=== PATIENT | female | born 1965 | race Caucasian/White ===

== ENCOUNTER 2017-06-27 11:59 | Observation (INO) ==
--- NOTE | 2017-06-27 12:15 | Emergency Department Note ---
Disposition Clinical Impression: Nausea & vomiting Disposition: Admitted As Inpatient Condition: Good Abdominal Pain HPI - General Chief Complaint: ED Abdominal Pain Stated Complaint: Epigastric pain and vomiting Time Seen by Provider: 06/27/17 12:00 Source: patient Mode of arrival: ambulatory Limitations: no limitations Nursing Notes Reviewed: Yes Vital Signs Reviewed: Yes - History of Present Illness HPI Narrative: 62-year-old female patient was seen here on Tuesday for nausea and vomiting and she continues to have it despite the medications so she came back for reevaluation. She explains nothing is new she just continues to have nausea and vomiting. Pt Subjective Complaint: other (n/v) Onset (ago): day(s) (several) Consistency: constant Location: diffuse Pain Severity: severe Pain Scale: 10 Quality: cramping Radiation: none Migration to: no migration Improves with: nothing Worsens with: nothing Associated symptoms: Reports: nausea, vomiting. Denies: fever, chills, constipation, dysuria, hematemesis, hematochezia, melena - Related Data Home Medications Medication Instructions Recorded Confirmed Alendronate Sodium 70 mg PO QWEEK 04/28/17 06/27/17 BuPROPion XL (24 HR) [Wellbutrin 300 mg PO DAILY 04/28/17 06/27/17 XL] Buspirone HCl [Buspar] 10 mg PO BID 04/28/17 06/27/17 Butalb/Acetaminophen/Caffeine 1 each PO Q4H PRN 04/28/17 06/27/17 [Fioricet 50-300-40 mg Capsule] Calcium Carbonate [Calcium] 500 mg PO DAILY 04/28/17 06/27/17 Meloxicam [Mobic] 15 mg PO DAILY 04/28/17 06/27/17 Omeprazole [PriLOSEC] 20 mg PO DAILY 04/28/17 06/27/17 Quetiapine Fumarate [SEROquel] 25 mg PO HS 04/28/17 06/27/17 Simethicone [Gas Relief] 80 mg PO BID PRN 04/28/17 06/27/17 Tizanidine HCl [Zanaflex] 4 mg PO TID PRN 04/28/17 06/27/17 clonazePAM [Clonazepam] 1 mg PO HS 04/28/17 06/27/17 Previous Rx's Medication Instructions Recorded Dicyclomine [Bentyl] 20 mg PO QID PRN #20 capsule 06/24/17 Ondansetron ODT [Zofran ODT] 4 mg SL Q6HR PRN #12 tab.rapdis 06/24/17 Promethazine [Phenergan] 25 mg PO Q8HR PRN #12 tablet 06/24/17 Allergies Allergy/AdvReac Type Severity Reaction Status Date / Time No Known Allergies Allergy Verified 04/29/17 09:01 All systems ED: reviewed and negative except as stated. Constitutional: Denies: fever, chills, weakness, weight change Eyes: Denies: eye pain, eye discharge, vision change ENT ED: Denies: ear pain, throat pain, dental pain, hearing loss, epistaxis, congestion, dysphagia Cardiovascular: Denies: chest pain, palpitations, dyspnea on exertion, edema, syncope Respiratory: Denies: cough, dyspnea, wheezes, hemoptysis, stridor Gastrointestinal: Reports: as per HPI, nausea, vomiting Genitourinary: Denies: dysuria, frequency, hematuria, discharge Musculoskeletal: Denies: back pain, neck pain, arthralgia, myalgia Integumentary: Denies: rash, abrasion, lesions Neurological: Denies: headache, weakness, numbness, paresthesias, confusion, abnormal gait, vertigo Endocrine: Denies: fatigue Hematological/Lymphatic: Denies: easy bleeding, easy bruising Allergic/Immunologic: Denies: facial swelling, urticaria Abdominal Pain PMH - Past Medical History Medical history: Reports: GERD, osteoporosis Female Surgical History: Reports: other Psychiatric history: Reports: bipolar, depression - Social History Smoking status: Never smoker Alcohol use: Reports: none Drug use: Reports: none Physical Exam - General Limitations: no limitations General appearance: alert, anxious - Head Head exam: atraumatic, normocephalic, normal inspection - Eye Eye exam: Present: normal appearance, PERRL, EOMI - ENT ENT exam: normal exam, normal oropharynx, mucous membranes moist - Neck Neck exam: Present: normal inspection, full ROM, trachea midline - Chest Chest inspection: Present: normal inspection, symmetric chest wall rise - Respiratory Respiratory exam: Present: normal lung sounds bilaterally - Cardiovascular Cardiovascular exam: Present: regular rate, normal rhythm, normal heart sounds - Abdominal Exam Abdominal exam: Present: soft, Non-Tender. Absent: tenderness, distention, guarding, rebound, rigidity - Extremities Exam Extremities exam: Present: normal inspection - Back Exam Back exam: Present: normal inspection - Neurological Exam Neurological exam: Present: alert, oriented X3 - Psychiatric Psychiatric exam: Present: normal affect, normal mood - Skin Skin exam: Present: warm, dry, intact Course Vital Signs Temperature 98.2 F 06/27/17 12:00 Pulse Rate 71 06/27/17 12:00 Respiratory Rate 18 06/27/17 12:00 Blood Pressure 154/89 06/27/17 12:00 O2 Sat by Pulse Oximetry 99 06/27/17 12:00 Temperature 98.2 F 06/27/17 12:00 Pulse Rate 83 06/27/17 14:35 Respiratory Rate 18 06/27/17 14:35 Blood Pressure 161/89 06/27/17 14:35 O2 Sat by Pulse Oximetry 99 06/27/17 14:35 Oxygen Delivery Oxygen Delivery Room Air Abdominal Pain - MDM Narrative Medical decision making narrative: Your blood pressure was elevated today so follow up with your primary care provider for recheck once discharge hospital - Lab Data Lab results reviewed: Yes I reviewed the patient's lab results. Result diagrams: 06/27/17 12:30 06/27/17 12:30 Lab Results 06/27/17 06/27/17 Range/Units 12:30 12:30 WBC 7.8 (4.3-11.1) K/mcL RBC 4.81 (3.82-4.97) M/mcL Hgb 14.8 (11.5-15.4) g/dL Hct 42.9 (35.3-44.9) % MCV 89.2 (83.0-100.0) fL MCH 30.8 (28.0-33.3) pg MCHC 34.5 (31.6-35.5) g/dL RDW 12.1 (11.5-14.5) % Plt Count 217 (140-400) K/mcL MPV 11.1 (9.4-12.4) fL Immature Gran % 0.3 (0-4) % Seg Neutrophils % 81.1 % Lymphocytes % 11.4 % Monocytes % 7.1 % Eosinophils % 0.0 % Basophils % 0.1 % Neutrophils # 6.3 (1.6-8.9) K/mcL Lymphocytes # 0.9 (0.6-4.6) K/mcL Monocytes # 0.6 (0.0-1.3) K/mcL Eosinophils # 0.0 (0.0-0.6) K/mcL Basophils # 0.0 (0.0-0.2) K/mcL Sodium 140 (136-145) mEq/L Potassium 3.5 (3.5-5.1) mEq/L Chloride 100 (98-107) mEq/L Carbon Dioxide 28 (23-29) mEq/L BUN 7 (6-20) mg/dL Creatinine 0.74 (0.60-1.20) mg/dL Est GFR ( Amer) > 60 (> 60) Est GFR (Non-Af Amer) > 60 (> 60) BUN/Creatinine Ratio 9 (6-26) Glucose 118 H (70-105) mg/dL Calculated Osmolality 289 (280-300) Calcium 9.7 (8.6-10.3) mg/dL Total Bilirubin 0.5 (0.3-1.0) mg/dL AST 26 (13-39) Units/L ALT 63 H (7-52) Units/L Alkaline Phosphatase 68 (34-104) Units/L Serum Total Protein 7.5 (6.4-8.9) g/dL Albumin 4.7 (3.5-5.7) g/dL Globulin 2.8 (2.4-3.5) g/dL Albumin/Globulin Ratio 1.7 (1.1-2.2) Amylase 33 (29-103) Units/L Lipase 17 (11-82) Units/L - Radiology Data Radiology results reviewed: Yes I reviewed the patient's radiology results.
[2017-06-27] MEDS ORDERED: 0.9 % Sodium Chloride 1,000 ML IVC ONE (12:18)
[2017-06-27] MEDS ORDERED: *HR* Promethazine 25 MG/ML VIAL IVP ONE (12:18)
[2017-06-27 12:41] LABS: Basophils % 0.1 %; Hematocrit 42.9 % (35.3-44.9); Hemoglobin 14.8 g/dL (11.5-15.4); Immature Granulocytes % 0.3 % (0-4); Lymphocytes # 0.9 K/mcL (0.6-4.6); Lymphocytes % 11.4 %; Mean Corpuscular HGB Conc 34.5 g/dL (31.6-35.5); Mean Corpuscular Hemoglobin 30.8 pg (28.0-33.3); Mean Corpuscular Volume 89.2 fL (83.0-100.0); Mean Platelet Volume 11.1 fL (9.4-12.4); Monocytes # 0.6 K/mcL (0.0-1.3); Monocytes % 7.1 %; Neutrophils # 6.3 K/mcL (1.6-8.9); Platelet Count 217 K/mcL (140-400); Red Blood Count 4.81 M/mcL (3.82-4.97); Red Cell Distribution Width 12.1 % (11.5-14.5); Segmented Neutrophils % 81.1 %
[2017-06-27 13:01] LABS: Alanine Aminotransferase 63 Units/L (7-52); Albumin 4.7 g/dL (3.5-5.7); Albumin/Globulin Ratio 1.7 (1.1-2.2); Alkaline Phosphatase 68 Units/L (34-104); Amylase 33 Units/L (29-103); Aspartate Amino Transferase 26 Units/L (13-39); BUN/Creatinine Ratio 9 (6-26); Bilirubin,Total 0.5 mg/dL (0.3-1.0); Blood Urea Nitrogen 7 mg/dL (6-20); Calcium 9.7 mg/dL (8.6-10.3); Carbon Dioxide 28 mEq/L (23-29); Chloride 100 mEq/L (98-107); Globulin 2.8 g/dL (2.4-3.5); Glucose 118 mg/dL (70-105); Lipase 17 Units/L (11-82); Osmolality,Calculated 289 (280-300); Potassium 3.5 mEq/L (3.5-5.1); Sodium 140 mEq/L (136-145); Total Protein 7.5 g/dL (6.4-8.9); eGFR For African Americans > 60 (> 60); eGFR For Non-African Americans > 60 (> 60)
[2017-06-27] MEDS ORDERED: Acetaminophen/Butalbital/CaffeineTABLET PO PRN (14:45)
[2017-06-27] MEDS ORDERED: Naloxone 0.4 MG/ML INJ IVP PRN (14:45)
[2017-06-27] MEDS ORDERED: NON-FORMULARY MEDICATION 1 EACH EACH (Alendronate Sodium [Alendronate Sodium] 70 MG) PO SCH (14:45)
[2017-06-27] MEDS ORDERED: Ondansetron ODT 4 MG TAB.RAPDIS SL PRN ×2 (14:45→18:31)
[2017-06-27] MEDS ORDERED: Simethicone 80 MG TAB.CHEW PO PRN (14:45)
[2017-06-27] MEDS: 0.9 % Sodium Chloride 1,000 ML IVC SCH (16:19)
[2017-06-27] MEDS: tiZANidine 4 MG TABLET PO PRN (18:15)
[2017-06-27] MEDS: *HR* Promethazine 25 MG/ML VIAL IVP PRN (19:06)
[2017-06-27 19:31] LABS: Bilirubin,Urine Negative (Negative); Blood,Urine Trace-intact (Negative); Clarity,Urine Cloudy (Clear); Color,Urine Yellow (Yellow); Glucose,Urine (UA) Normal (Normal); Ketones,Urine 80 mg/dL (Negative); Leukocyte Esterase,Urine Negative (Negative); Nitrite,Urine Negative (Negative); PH,Urine 8.5 pH Units (5.0-8.0); Protein,Urine Trace mg/dL (Neg-Trace); Urobilinogen,Urine Normal (Normal)
[2017-06-27 19:39] LABS: Squamous Epithelial Cell,Urine Many per lpf (None-Few)
[2017-06-27 19:40] LABS: Bacteria,Urine Many per hpf (None-Few); WBC,Urine 0-3 per hpf (0-3)
[2017-06-27 19:42] LABS: Mucus,Urine Few (Few)
[2017-06-27] MEDS: clonazePAM 0.5 MG TABLET PO SCH (21:33)
[2017-06-27] MEDS ORDERED: traZODone 50 MG TABLET PO SCH (22:45)
[2017-06-28] MEDS ORDERED: Mag Hydrox/Al Hydrox/Simeth 30 ML UDC PO SCH
[2017-06-28] MEDS: 0.9 % Sodium Chloride 1,000 ML IVC SCH (01:15)
[2017-06-28] MEDS: tiZANidine 4 MG TABLET PO PRN (05:12)
[2017-06-28 06:46] LABS: Basophils % 0.1 %; Eosinophils % 0.1 %; Hemoglobin 13.9 g/dL (11.5-15.4); Immature Granulocytes % 0.5 % (0-4); Lymphocytes # 0.9 K/mcL (0.6-4.6); Lymphocytes % 11.4 %; Mean Corpuscular HGB Conc 34.8 g/dL (31.6-35.5); Mean Corpuscular Hemoglobin 30.8 pg (28.0-33.3); Mean Corpuscular Volume 88.5 fL (83.0-100.0); Mean Platelet Volume 11.6 fL (9.4-12.4); Monocytes # 0.6 K/mcL (0.0-1.3); Monocytes % 8.1 %; Platelet Count 191 K/mcL (140-400); Red Blood Count 4.52 M/mcL (3.82-4.97); Red Cell Distribution Width 12.1 % (11.5-14.5); Segmented Neutrophils % 79.8 %
[2017-06-28 07:23] LABS: BUN/Creatinine Ratio 10 (6-26); Blood Urea Nitrogen 6 mg/dL (6-20); Calcium 8.4 mg/dL (8.6-10.3); Carbon Dioxide 24 mEq/L (23-29); Chloride 101 mEq/L (98-107); Glucose 112 mg/dL (70-105); Osmolality,Calculated 276 (280-300); Potassium 2.7 mEq/L (3.5-5.1); Sodium 134 mEq/L (136-145); eGFR For African Americans > 60 (> 60); eGFR For Non-African Americans > 60 (> 60)
[2017-06-28] MEDS: BuPROPion XL (24 HR) 150 MG TABLET PO SCH (08:35)
--- NOTE | 2017-06-28 10:08 | Internal Med History&Physical ---
Date of Encounter: 06/28/17 Time of Encounter: 09:40 Assessment and Plan (1) Gastroenteritis Current visit: No Status: Acute She will be given IV fluids and prn anti-emetics. Further workup will be done as needed. (2) Hypokalemia Current visit: Yes Status: Acute Potassium level has decreased to 2.7 today. Will give supplemental potassium and monitor labs. Internal Medicine - H&P: HPI Chief complaint: Vomiting Admitted From: Emergency Dept Plans for Post Hospital Care: Home History of present illness: Ms. Gale is a 52 year old female who returned to emergency room the day of admission complaining of continued vomiting. She been seen in emergency room June [address] scan at that time showed no acute abnormality. She reports there had been small amount of bright red blood in the vomit the day prior to admission. She reports she had diarrhea on June 24 and . She denies fever, previous similar episodes, or family members or other contacts with similar symptoms. She was admitted [facility] floor for ongoing care needs. She states she has diffuse abdominal discomfort at the present time but no significant pain otherwise. She denies URI symptoms. She denies melena or hematochezia. She denies disorders of her liver gallbladder or exocrine pancreas. Past Med Surg Social Fam HX - Past Medical History Medical history: GERD, osteoporosis Psychiatric history: bipolar, depression - Social History Smoking Status: Never smoker Smokeless Tobacco Status: No Alcohol use: none Drug use: none Internal Medicine - H&P: Meds Alendronate Sodium 70 mg PO QWEEK 04/28/17 [History] BuPROPion XL (24 HR) [Wellbutrin XL] 300 mg PO DAILY 04/28/17 [History] Buspirone HCl [Buspar] 10 mg PO BID 04/28/17 [History] Butalb/Acetaminophen/Caffeine [Fioricet 50-300-40 mg Capsule] 1 each PO Q4H PRN 04/28/17 [History] Calcium Carbonate [Calcium] 500 mg PO DAILY 04/28/17 [History] Meloxicam [Mobic] 15 mg PO DAILY 04/28/17 [History] Omeprazole [PriLOSEC] 20 mg PO DAILY 04/28/17 [History] Quetiapine Fumarate [SEROquel] 25 mg PO HS 04/28/17 [History] Simethicone [Gas Relief] 80 mg PO BID PRN 04/28/17 [History] Tizanidine HCl [Zanaflex] 4 mg PO TID PRN 04/28/17 [History] clonazePAM [Clonazepam] 1 mg PO HS 04/28/17 [History] Dicyclomine [Bentyl] 20 mg PO QID PRN #20 capsule 06/24/17 [Rx] Ondansetron ODT [Zofran ODT] 4 mg SL Q6HR PRN #12 tab.rapdis 06/24/17 [Rx] Promethazine [Phenergan] 25 mg PO Q8HR PRN #12 tablet 06/24/17 [Rx] 3 Allergy/AdvReac Type Severity Reaction Status Date / Time No Known Allergies Allergy Verified 04/29/17 09:01 All Systems PM: A 10-system review of systems was performed and is negative for pertinent findings except as documented above in the HPI. Review of systems: Gen.: She states she has lost approximately 12 pounds in the past 2 months. She attributes this to decreased intake from concern over her who has stage IV cancer. Cardiovascular: She denies hypertension NH heart failure angina DVT or pulmonary embolus Respiratory: She smoked briefly as a teenager but denies chronic lung disease. GI: As per history of present illness : She denies hematuria dysuria or kidney stones Neurologic: She denies large distribution strokes or seizures. Endocrine: She denies diabetes thyroid disease or hyperlipidemia Hematology/oncology: She denies blood disorders cancers or anemia Psychiatric: She has anxiety and bipolar disorder. [place] skeletal: She has DJD and osteoporosis. She reports she has bone spurs in her feet. - Constitutional Vitals: Temp Pulse Resp BP Pulse Ox 99.0 F 77 16 149/93 97 06/28/17 06:46 06/28/17 06:46 06/28/17 06:46 06/28/17 06:46 06/28/17 06:46 Exam: Gen.: She is well-developed well-nourished female resting in bed who appears in mild discomfort. HEENT: Head is atraumatic and normocephalic. Eyes: EOMI. There is no scleral icterus. Mouth: Mucosa is moist. Neck: Supple and nontender. There is no thyromegaly or adenopathy noted. Heart: Regular without murmurs gallops or ectopics Lungs: No wheezes or crackles are heard. Abdomen: Bowel sounds are absent. There is mild tenderness to palpation diffusely. No masses or guarding are noted. Extremities: There is no cyanosis edema or clubbing noted. Dorsalis pedis and posttibial pulses are trace to 1+ palpable bilaterally. Neurologic: Mental status: She is talkative and a good historian. Cranial nerves: Smile is symmetric. Forehead wrinkles bilaterally. Tongue protrudes midline. EOMI. Motor: There is no pronator drift. Cerebellar: Finger to nose is intact bilaterally. Skin: Warm and dry. Internal Med - H&P Results - Labs CBC & Chem 7: 06/28/17 05:35 06/28/17 05:35 Labs: Short CBC 06/28/17 Range/Units 05:35 WBC 7.6 (4.3-11.1) K/mcL Hgb 13.9 (11.5-15.4) g/dL Hct 40.0 (35.3-44.9) % Plt Count 191 (140-400) K/mcL Neutrophils # 6.0 (1.6-8.9) K/mcL BMP 06/28/17 05:35 Sodium 134 L Potassium 2.7 L Chloride 101 Carbon Dioxide 24 BUN 6 Creatinine 0.62 Glucose 112 H Calcium 8.4 L Urine 06/27/17 Range/Units 19:00 Urine Color Yellow (Yellow) Urine Clarity Cloudy A (Clear) Urine pH 8.5 H (5.0-8.0) pH Units Ur Specific [place] 1.020 (1.010-1.025) Urine Protein Trace (Neg-Trace) mg/dL Urine Glucose (UA) Normal (Normal) mg/dL
[2017-06-28] MEDS ORDERED: GI Cocktail 40 ML EACH PO ONE (10:14)
[2017-06-28] MEDS: *HR* Promethazine 25 MG/ML VIAL IVP PRN ×2 (10:26→15:49)
[2017-06-28] MEDS: 0.9 % Sodium Chloride w KCl 20 MEQ/1,000 ML MLS IVC SCH (10:30)
[2017-06-28] MEDS ORDERED: Potassium Chloride 20 MEQ, Lidocaine 1% 2 ML in D5% in Water 250 ML IVPB ONE (11:05)
[2017-06-28] MEDS: Ondansetron 4 MG/2 ML VIAL IVP PRN ×2 (13:23→21:16)
[2017-06-28] MEDS: Mag Hydrox/Al Hydrox/Simeth 30 ML UDC PO PRN (17:22)
[2017-06-28] MEDS: clonazePAM 0.5 MG TABLET PO SCH (21:18)
[2017-06-28] MEDS: traZODone 50 MG TABLET PO PRN (21:19)
[2017-06-29] MEDS: 0.9 % Sodium Chloride w KCl 20 MEQ/1,000 ML MLS IVC SCH ×2 (01:30→10:55)
[2017-06-29] MEDS: Mag Hydrox/Al Hydrox/Simeth 30 ML UDC PO PRN (01:53)
[2017-06-29] MEDS: tiZANidine 4 MG TABLET PO PRN (01:53)
[2017-06-29 06:04] LABS: Basophils % 0.2 %; Eosinophils % 0.1 %; Hematocrit 41.2 % (35.3-44.9); Hemoglobin 14.5 g/dL (11.5-15.4); Immature Granulocytes % 0.4 % (0-4); Lymphocytes # 1.1 K/mcL (0.6-4.6); Mean Corpuscular HGB Conc 35.2 g/dL (31.6-35.5); Mean Corpuscular Hemoglobin 30.9 pg (28.0-33.3); Mean Corpuscular Volume 87.7 fL (83.0-100.0); Mean Platelet Volume 11.6 fL (9.4-12.4); Monocytes # 0.9 K/mcL (0.0-1.3); Monocytes % 11.3 %; Neutrophils # 6.1 K/mcL (1.6-8.9); Platelet Count 194 K/mcL (140-400); Red Cell Distribution Width 11.9 % (11.5-14.5)
[2017-06-29 06:29] LABS: BUN/Creatinine Ratio 13 (6-26); Blood Urea Nitrogen 8 mg/dL (6-20); Calcium 8.8 mg/dL (8.6-10.3); Carbon Dioxide 25 mEq/L (23-29); Chloride 102 mEq/L (98-107); Glucose 112 mg/dL (70-105); Osmolality,Calculated 279 (280-300); Potassium 3.3 mEq/L (3.5-5.1); Sodium 135 mEq/L (136-145); eGFR For African Americans > 60 (> 60); eGFR For Non-African Americans > 60 (> 60)
[2017-06-29] MEDS ORDERED: traMADol 50 MG TABLET PO ONE (06:47)
[2017-06-29] MEDS: BuPROPion XL (24 HR) 150 MG TABLET PO SCH (08:11)
--- NOTE | 2017-06-29 09:45 | Internal Med Progress Note ---
Date of Encounter: 06/29/17 Time of Encounter: 09:35 - Assessment and plan (1) Gastroenteritis Current Visit: No Status: Acute Assessment and plan: June 29. Continue IV fluids with supplemental potassium and prn anti-emetics. (2) Hypokalemia Current Visit: Yes Status: Acute Assessment and plan: June 29. Continue supplemental potassium and recheck labs in a.m. - Subjective Interval history: June 29. She feels better. She had vomiting last evening and had minimal breakfast intake today. - Constitutional Vitals: Temp Pulse Resp BP Pulse Ox 98.1 F 96 18 157/104 97 06/29/17 08:02 06/29/17 08:02 06/29/17 08:02 06/29/17 08:02 06/29/17 08:02 Exam: She is resting comfortably in bed and appears in minimal distress at present time. Her affect is bright and cheerful. I reviewed her medications and lab results. Internal Medicine: Result - Labs CBC & Chem 7: 06/29/17 05:12 06/29/17 05:12 Labs: Short CBC 06/29/17 Range/Units 05:12 WBC 8.1 (4.3-11.1) K/mcL Hgb 14.5 (11.5-15.4) g/dL Hct 41.2 (35.3-44.9) % Plt Count 194 (140-400) K/mcL Neutrophils # 6.1 (1.6-8.9) K/mcL BMP 06/29/17 05:12 Sodium 135 L Potassium 3.3 L Chloride 102 Carbon Dioxide 25 BUN 8 Creatinine 0.62 Glucose 112 H Calcium 8.8 Consult Discharge Plan - Plan Referrals: Carson Block MD [Primary Care Provider] - 1 week
[2017-06-29] MEDS ORDERED: GI Cocktail 40 ML EACH PO ONE (12:21)
[2017-06-29] MEDS: clonazePAM 0.5 MG TABLET PO SCH (21:08)
[2017-06-29] MEDS: traZODone 50 MG TABLET PO PRN (21:09)
[2017-06-30] MEDS: 0.9 % Sodium Chloride w KCl 20 MEQ/1,000 ML MLS IVC SCH ×2 (01:58)
[2017-06-30] MEDS: BuPROPion XL (24 HR) 150 MG TABLET PO SCH (06:48)
[2017-06-30 07:05] VITALS: BP 138/86
--- NOTE | 2017-06-30 09:48 | Discharge Summary ---
Date of Encounter: 06/30/17 Time of Encounter: 09:40 - Discharge Diagnosis (1) Gastroenteritis Priority: Primary Status: Acute (2) Hypokalemia Priority: Secondary Status: Acute Hospital course: Ms. Gale is a 52 year old female who returned to emergency room the day of admission complaining of continued vomiting. She been seen in emergency room June [address] scan at that time showed no acute abnormality. She reports there had been small amount of bright red blood in the vomit the day prior to admission. She reports she had diarrhea on June 24 and . She denies fever, previous similar episodes, or family members or other contacts with similar symptoms. She was admitted to [facility] for ongoing care needs. Initial orders were written by the emergency room physician. I saw her on June 28 and performed a history and physical. She was given IV fluids and prn anti-emetics. Her vomiting subsided and she was able to tolerate adequate amount of oral food and fluids. Supplemental potassium was given and potassium level radha to 3.3 the day prior to discharge. She will continue potassium supplement for 2 days after discharge. On June 30 she felt stable for discharge home. She will follow with her PCP within 1 week. - Time Spent with Patient Total time spent providing and/or coordinating discharge services: - Discharge Medications Prescriptions: Potassium Chloride 10 meq PO BIDWM #4 tab.er.prt Home Medications: Alendronate Sodium 70 mg PO QWEEK 04/28/17 [History] BuPROPion XL (24 HR) [Wellbutrin Xl] 300 mg PO DAILY 04/28/17 [History] Buspirone HCl [Buspar] 10 mg PO BID 04/28/17 [History] Butalb/Acetaminophen/Caffeine [Fioricet 50-300-40 mg Capsule] 1 each PO Q4H PRN 04/28/17 [History] Calcium Carbonate [Calcium] 500 mg PO DAILY 04/28/17 [History] Omeprazole [PriLOSEC] 20 mg PO DAILY 04/28/17 [History] Quetiapine Fumarate [Seroquel] 25 mg PO HS 04/28/17 [History] Simethicone [Gas Relief] 80 mg PO BID PRN 04/28/17 [History] Tizanidine HCl [Zanaflex] 4 mg PO TID PRN 04/28/17 [History] clonazePAM [Clonazepam] 1 mg PO HS 04/28/17 [History] Dicyclomine [Bentyl] 20 mg PO QID PRN #20 capsule 06/24/17 [Rx] Ondansetron ODT [Zofran ODT] 4 mg SL Q6HR PRN #12 tab.rapdis 06/24/17 [Rx] Promethazine [Phenergan] 25 mg PO Q8HR PRN #12 tablet 06/24/17 [Rx] Meloxicam [Mobic] 15 mg PO DAILY PRN #0 06/30/17 [Rx] Potassium Chloride 10 meq PO BIDWM #4 tab.er.prt 06/30/17 [Rx] Allergies/Adverse Reactions: 3 Allergy/AdvReac Type Severity Reaction Status Date / Time No Known Allergies Allergy Verified 04/29/17 09:01 Date of admission: 06/27/17 14:15 Primary care physician: Carlene Chung Consults: 06/27/17 16:34 Consult to Nutrition [CONS] Routine Comment: Consulting Provider: NUTRITION Reason for Dietary Consult: MST Score - Constitutional Vitals: Temp Pulse Resp BP Pulse Ox 98.9 F 79 16 138/86 99 06/30/17 07:04 06/30/17 07:04 06/30/17 07:04 06/30/17 07:04 06/30/17 07:04 - Patient Status Disposition: Home, Self-Care Condition: Good Functional capacity at discharge: independent ambulation Overall status at discharge: patient is progressing back to baseline - Discharge Instructions Follow Up With: Carson Block MD [Primary Care Provider] - 1 week - Diet and Activity Activity: resume usual activities as tolerated Diet: advance to your usual diet
== END 2017-06-30 10:46 | disposition home or self-care (01) ==
LOC: INPPIK 11:59 → EMEROOPIK 11:59 → INPPIK 14:51
PROVIDERS: ADMIT Emergency Medicine; ATTEND Internal Medicine